=== PATIENT | male | born 1995 | race African-American/Black ===

== ENCOUNTER 2018-11-01 10:30 | Emergency (ER) | payer OTHER ==
[~2018-11-01] VITALS: Ht 165.1 cm; Wt 59.0 kg
[~2018-11-01 10:30] MED LIST: BRONCOTRON-D L118 ML PO
== END 2018-11-01 14:28 | disposition home or self-care (01) ==
LOC: ER 10:30
DX: R42 Dizziness and giddiness (principal); E86.0 Dehydration